=== PATIENT | male | born 1955 | race Caucasian/White ===

== ENCOUNTER 2018-11-26 07:08 | Day surgery (SDC) | payer OTHER ==
[~2018-11-26] VITALS: Ht 165.1 cm; Wt 83.7 kg
[2018-11-26 07:55] VITALS: Ht 165.1 cm; Wt 83.7 kg
[2018-11-26 08:02] VITALS: BP 169/86; PULSE 62; RESP 24
[2018-11-26] MEDS ORDERED: ATORVASTATIN (08:02)
[2018-11-26] MEDS ORDERED: VENTOLIN INH (08:02)
[2018-11-26] MEDS ORDERED: IBUPROFEN (08:02)
[2018-11-26 09:29] VITALS: BP 116/73; PULSE 54; RESP 15
[2018-11-26] MEDS ORDERED: MIDAZOLAM 1 MG/ML 2 ML INJ ONE ×2 (09:45)
[2018-11-26] MEDS ORDERED: FENTAnyl 50 MCG/ML VIAL ONE (09:45)
== END 2018-11-26 11:22 | disposition home or self-care (01) ==
LOC: GIL 07:08
PROVIDERS: ATTEND Internal Medicine Gastroenterology
DX: Z12.11 Encounter for screening for malignant neoplasm of colon (principal); K64.8 Other hemorrhoids
CPT/HCPCS: 45378; J2250; J3010; Z7610